=== PATIENT | male | born 1930 | race Caucasian/White ===

== ENCOUNTER 2016-11-28 19:08 | Emergency (ER) | payer MEDICAID ==
[~2016-11-28] VITALS: Ht 172.7 cm; Wt 81.6 kg
[2016-11-28] MEDS ORDERED: CEFTRIAXONE 1 G in IV D5W 50 ML IV STA (19:38)
[2016-11-28] MEDS ORDERED: IV SET PRIMARY 1 EA INFUS.SET MC ONE (19:39)
[2016-11-28] MEDS ORDERED: CEFTRIAXONE 1GM BAG (ER ONLY) 50 ML IV ONE (19:39)
[2016-11-28] MEDS ORDERED: IV NS 0.9% 1,000 ML ONE (19:39)
[2016-11-28] MEDS ORDERED: IV NS 0.9% 1,000 ML BAG IV ONE (20:00)
[2016-11-28 20:05] LABS: KETONES,URINE Trace (NEGATIVE); LEUKOCYTE ESTERASE ,URINE Large (NEGATIVE)
[2016-11-28 20:06] LABS: ADD UA MICROSCOPIC YES; PH,URINE >9.0 (5.0-8.0)
[2016-11-28 20:07] LABS: ADD URINE CULTURE YES; WBC,URINE 21-50 /HPF (0-3)
[2016-11-28 20:17] VITALS: BP 163/84
== END 2016-11-28 21:35 ==
LOC: ER 19:11
DX: N30.00 Acute cystitis without hematuria (principal); T83.091A Other mechanical complication of indwelling urethral catheter, initial encounter; F32.9 Major depressive disorder, single episode, unspecified; F20.9 Schizophrenia, unspecified; E78.5 Hyperlipidemia, unspecified; N40.0 Benign prostatic hyperplasia without lower urinary tract symptoms
CPT/HCPCS: 51702; 81001; 96365; 99284; A4606; J0696; J7030; Z7610; 81000-TC; 87086-TC

== ENCOUNTER 2017-01-22 00:27 | Emergency (ER) | payer MEDICAID ==
[~2017-01-22] VITALS: Ht 167.6 cm; Wt 70.8 kg
--- NOTE | 2017-01-22 01:09 | NUR ---
PT BIBRA FROM [facility] FOR "ABD PAIN X1 DAY AND PAIN IS WHERE THE SUPRAPUBIC CATHETER IS" PT DENIES FEVER/N/V//D. PT AOX3 RUSSIAN SPEAKING. RR EVEN AND UNLABORED. NO SOB NOTED. NAD NOTED. NO NVD AT THIS TIME. PT NOT DIAPHORETIC. PT GOWNED AND PLACED ON MONITOR. PT NOTED WITH SUPRAPUBIC CATH, URINE NOTED IN JACOBSON BAG. NOT HEMATURIA NOTED. PT WAITING FOR MD QUIROZ.
--- NOTE | 2017-01-22 01:30 | NUR ---
UNABLE TO FLUSH SUPRAPUBIC CATH. DR. BOUDREAUX AWARE.
[2017-01-22] MEDS ORDERED: LIDOCAINE VISCOUS 2% UD 15 ML UDC ONE (01:32)
--- NOTE | 2017-01-22 01:50 | NUR ---
PER DR. BOUDREAUX REPLACED SUPRAPUBIC CATH, WITH 18 FR JACOBSON CATH. URINE COLLECTED. CALLED LAB FOR PRINTED [facility] BOARDS CONTACT PRINTER.
[2017-01-22 03:18] LABS: APPEARANCE,URINE CLOUDY (CLEAR); COLOR,URINE YELLOW (YELLOW)
[2017-01-22 03:25] LABS: PH,URINE 6.5 (5.0-8.0); PROTEIN,URINE 2+ mg/dl (NEGATIVE)
[2017-01-22 03:26] LABS: BILIRUBIN,URINE NEGATIVE (NEGATIVE); BLOOD, URINE 3+ Ery/uL (NEGATIVE); KETONES,URINE NEGATIVE (NEGATIVE); NITRITE, URINE POSITIVE (NEGATIVE); UGLUCOSE NEGATIVE (NEGATIVE)
[2017-01-22 03:27] LABS: LEUKOCYTE ESTERASE ,URINE 3+ (NEGATIVE); UROBILINOGEN,URINE 0.2 EU/dL (0.2)
[2017-01-22 03:27] LABS: BASOPHILS % (AUTO) 0.2 % (0.0-2.0); EOSINOPHILS % (AUTO) 0.3 % (0.0-6.0); HEMATOCRIT 47 % (39-51); HEMOGLOBIN 15.8 g/dL (13.5-17.5); LYMPHOCYTES # (AUTO) 1.1 /CMM (0.8-4.8); MEAN CORPUSCULAR HEMOGLOBIN 29 PG (26.0-33.0); MEAN CORPUSCULAR HGB CONC 34 g/dl (31.0-36.0); MEAN CORPUSCULAR VOLUME 86 fL (80-96); MONOCYTES # (AUTO) 0.6 /CMM (0.1-1.30); MONOCYTES % (AUTO) 6.1 % (2.0-12.0); NEUTROPHILS # (AUTO) 7.9 /CMM (1.8-8.9); NEUTROPHILS % (AUTO) 82.4 % (43.0-81.0); PLATELET COUNT (AUTO) 226 /CMM (150-450); RDW COEFFICIENT OF VARIATION 14.2 (11.5-15.0); RED BLOOD CELL COUNT(AUTO) 5.48 MIL/uL (4.5-6.0); WHITE BLOOD COUNT (AUTO) 9.6 K/uL (4.3-11.0)
[2017-01-22 03:28] LABS: RBC,URINE 21-50 /HPF (0-2)
[2017-01-22 03:29] LABS: ADD URINE CULTURE YES; BACTERIA,URINE 4+ /HPF (None Seen); SQUAMOUS EPITHELIAL CELL,UR Few /HPF (None Seen); WBC,URINE TOO NUMEROUS TO COUN /HPF (0-3)
[2017-01-22 03:38] LABS: CALCIUM, SERUM 8.7 mg/dL (8.5-10.1); CREATININE 0.9 mg/dL (0.6-1.3); POTASSIUM 4.3 mmol/L (3.5-5.1)
--- NOTE | 2017-01-22 03:57 | NUR ---
DR. BOUDREAUX AT BEDSIDE SPEAKING TO PT REGARDING RESULTS.
--- NOTE | 2017-01-22 05:00 | NUR ---
REPORT GIVEN TO MED RESPONSE STAFF ON BEHALF OF PRIMARY NURSE SONNY. Patient discharged to home in stable condition. Written and verbal after care instructions given. Patient verbalizes understanding of instruction.
[2017-01-22 05:01] VITALS: BP 150/63
== END 2017-01-22 05:01 | disposition home or self-care (01) ==
LOC: ER 00:34
DX: T83.090A Other mechanical complication of cystostomy catheter, initial encounter (principal); F03.90 Unspecified dementia, unspecified severity, without behavioral disturbance, psychotic disturbance, mood disturbance, and anxiety; E78.5 Hyperlipidemia, unspecified; F20.9 Schizophrenia, unspecified; F32.9 Major depressive disorder, single episode, unspecified; I10 Essential (primary) hypertension; N40.0 Benign prostatic hyperplasia without lower urinary tract symptoms; Z86.73 Personal history of transient ischemic attack (TIA), and cerebral infarction without residual deficits
CPT/HCPCS: 36415; 80048-TC; 81000-TC; 85025-TC; 87086-TC; A4217; A4606; Z7610

== ENCOUNTER 2017-08-13 01:45 | Emergency (ER) | payer MEDICAID ==
[~2017-08-13] VITALS: Ht 167.6 cm; Wt 63.5 kg
--- NOTE | 2017-08-13 02:07 | NUR ---
XR AT BEDSIDE.
--- NOTE | 2017-08-13 02:18 | NUR ---
back from ct scan.
[2017-08-13 02:19] LABS: BASOPHILS % (AUTO) 0.7 % (0.0-2.0); EOSINOPHILS # (AUTO) 0.2 /CMM (0.0-0.7); EOSINOPHILS % (AUTO) 3.5 % (0.0-6.0); HEMATOCRIT 47 % (39-51); HEMOGLOBIN 15.4 g/dL (13.5-17.5); LYMPHOCYTES # (AUTO) 1.5 /CMM (0.8-4.8); LYMPHOCYTES % (AUTO) 26.4 % (20.0-44.0); MEAN CORPUSCULAR HEMOGLOBIN 29 PG (26.0-33.0); MEAN CORPUSCULAR HGB CONC 33 g/dl (31.0-36.0); MEAN CORPUSCULAR VOLUME 86 fL (80-96); MONOCYTES # (AUTO) 0.5 /CMM (0.1-1.30); MONOCYTES % (AUTO) 9.3 % (2.0-12.0); NEUTROPHILS # (AUTO) 3.4 /CMM (1.8-8.9); NEUTROPHILS % (AUTO) 60.1 % (43.0-81.0); PLATELET COUNT (AUTO) 197 /CMM (150-450); RDW COEFFICIENT OF VARIATION 14.4 (11.5-15.0); RED BLOOD CELL COUNT(AUTO) 5.39 MIL/uL (4.5-6.0); WHITE BLOOD COUNT (AUTO) 5.7 K/uL (4.3-11.0)
[2017-08-13 02:21] LABS: APPEARANCE,URINE TURBID (CLEAR); COLOR,URINE YELLOW (YELLOW)
[2017-08-13 02:22] LABS: PROTEIN,URINE 2+ mg/dl (NEGATIVE); UGLUCOSE NEGATIVE (NEGATIVE)
[2017-08-13 02:23] LABS: BILIRUBIN,URINE NEGATIVE (NEGATIVE); KETONES,URINE NEGATIVE (NEGATIVE); NITRITE, URINE NEGATIVE (NEGATIVE); UROBILINOGEN,URINE 0.2 EU/dL (0.2)
[2017-08-13 02:24] LABS: LEUKOCYTE ESTERASE ,URINE 3+ (NEGATIVE)
[2017-08-13 02:25] LABS: BLOOD, URINE 3+ Ery/uL (NEGATIVE)
[2017-08-13 02:25] LABS: CALCIUM, SERUM 9.3 mg/dL (8.5-10.1); CARBON DIOXIDE 28 mmol/L (21-32); CHLORIDE 102 mmol/L (98-107); CREATININE 0.8 mg/dL (0.6-1.3); GLUCOSE 119 mg/dL (74-106); POTASSIUM 4.4 mmol/L (3.5-5.1); SODIUM SERUM 135 mmol/L (136-145); UREA NITROGEN, BLOOD 16 mg/dL (7-18)
[2017-08-13 02:26] LABS: BACTERIA,URINE Rare /HPF (None Seen); SQUAMOUS EPITHELIAL CELL,UR Few /HPF (None Seen)
[2017-08-13 02:27] LABS: INR 1.03 (0.87-1.13); PROTHROMBIN TIME 10.7 SECS (9.5-12.7)
[2017-08-13 02:27] LABS: TRIPLE PHOSPHATE CRYSTAL,UR Few /HPF (None Seen); URINE AMORPHOUS PHOSPHATES Moderate /HPF (None Seen)
[2017-08-13] MEDS ORDERED: CEFTRIAXONE 1GM BAG (ER ONLY) 1 GM/50 ML PIGGYBACK IV ONE (02:30)
[2017-08-13] MEDS ORDERED: HYDROMORPHONE 1 MG/1 ML DISP.SYRIN IV ONE (02:30)
[2017-08-13] MEDS ORDERED: ONDANSETRON HCL/PF 4 MG/2 ML VIAL IV ONE (02:30)
[2017-08-13 02:31] LABS: ALANINE AMINOTRANSFERASE 41 U/L (12-78); ALBUMIN 3.4 g/dL (3.4-5.0); ALKALINE PHOSPHATASE 149 U/L (46-116); ASPARTATE AMINOTRANSFERASE 26 U/L (15-37); BILIRUBIN,DIRECT 0.1 mg/dL (0.0-0.2); BILIRUBIN,TOTAL 0.4 mg/dL (0.2-1.0); LIPASE 136 U/L (73-393); TOTAL PROTEIN, SERUM 8.1 g/dL (6.4-8.2); TROPONIN I < 0.017 ng/mL (0.00-0.056)
[2017-08-13] MEDS ORDERED: ONDANSETRON HCL/PF 4 MG/2 ML VIAL ONE (02:34)
[2017-08-13] MEDS ORDERED: CEFTRIAXONE 1GM BAG (ER ONLY) 50 ML IV ONE (02:34)
[2017-08-13] MEDS ORDERED: HYDROMORPHONE INJ 2 MG/ML DISP.SYRIN ONE (02:35)
--- NOTE | 2017-08-13 02:48 | NUR ---
medicated patient as ordered by Dr Avelar.
--- NOTE | 2017-08-13 02:49 | NUR ---
BED 306-[facility]
--- NOTE | 2017-08-13 03:20 | NUR ---
replaced suprapubic catheter to a new 16f cath via aseptic technique. Drained about 1000cc of cloudy malodorous urine. Patient violetta procedure well and reports relief from abdominal pain. Dr Avelar notified.
--- NOTE | 2017-08-13 03:26 | NUR ---
SPOKE TO ELIA FROM [facility], [employer] 30MIN
--- NOTE | 2017-08-13 04:04 | NUR ---
Report given to Aranza from [facility].
--- NOTE | 2017-08-13 04:05 | NUR ---
IV removed. Catheter intact and site benign. Pressure and 4x4 applied to site. No bleeding noted.
--- NOTE | 2017-08-13 04:06 | NUR ---
Endorsed care to [facility] pr[facility] staff. Patient is picked up. nad noted. vss.
[2017-08-13 04:07] VITALS: BP 133/74
== END 2017-08-13 04:08 ==
LOC: ER 01:50
DX: N39.0 Urinary tract infection, site not specified (principal); N32.0 Bladder-neck obstruction; T83.090A Other mechanical complication of cystostomy catheter, initial encounter; F03.90 Unspecified dementia, unspecified severity, without behavioral disturbance, psychotic disturbance, mood disturbance, and anxiety; I10 Essential (primary) hypertension; F32.9 Major depressive disorder, single episode, unspecified; F20.9 Schizophrenia, unspecified; E78.5 Hyperlipidemia, unspecified; Z86.73 Personal history of transient ischemic attack (TIA), and cerebral infarction without residual deficits; Z91.013 Allergy to seafood
CPT/HCPCS: 36415; 51702; 71010; 74176; 80048; 80076; 81001; 83690; 84484; 85025; 85730; 87086; 93005; 96365; 96375; 99285; A4606; J0696; J1170; J2405; Z7610; 81000-TC